=== PATIENT | male | born 1955 | race African-American/Black ===

== ENCOUNTER 2016-11-21 15:57 | Emergency (ER) | payer OTHER ==
[~2016-11-21 15:57] MED LIST: CETI10 PO; FURO8SOL PO; HYDR-2768 PO; MAXZ PO; NAPR-573 PO; POTA-267 PO
[2016-11-21 15:59] VITALS: BP 170/96; PULSE 70; RESP 18; TEMP 97.7; O2SAT 98
[2016-11-21] MEDS ORDERED: SODIUM CHLORIDE 0.9% FLUSH 5 ML FLUSH IVF PRN (18:15)
--- NOTE | 2016-11-21 18:18 | PD ---
HPI Chief Complaint: Respiratory Distress Time Seen by Provider: 18:07 Travel History International Travel<30 days: No Contact w/Intl Traveler<30days: No Traveled to known affect area: No History of Present Illness HPI 61-year-old male came to the emergency room with history of cough and shortness of breath. Patient is a heavy smoker for many years. He also drinks alcohol on a regular basis and last drink was last night. Patient says that this cough has been going on for couple months. Initially he was bringing out yellowish color sputum but now it has turned to whitish. Has been using his inhalers and nebulizer but he ran out of medications. He's been having some chest pain as well. No history of fever or chills. His vital signs were stable. [facility] Past Medical History Narrative Medical List of his past medical history is reviewed from the nursing note. Arthritis: Yes Asthma: Yes COPD: Yes Cerebrovascular Accident: Yes (TIA) Diminished Hearing: No Seizures: Yes Social History Alcohol Use: Yes (1/2 PINT DAY) Tobacco Use: Yes (1 PPD) Substance Use: No Allergies-Medications (Allergen,Severity, Reaction): Coded Allergies: No Known Allergies (Verified , 11/21/16) Comments No known drug allergies. Reported Meds & Prescriptions Reported Meds & Active Scripts Active Levaquin (Levofloxacin) 500 Mg Tab 500 Mg PO DAILY 7 Days Prednisone 50 Mg Tab 50 Mg PO DAILY 5 Days Ventolin Hfa 18 GM Inh (Albuterol Sulfate) 90 Mcg/Act Aer 2 Puff INH Q4-6H PRN Reported Hydrochlorothiazide 25 Mg Tab 25 Mg PO DAILY Lisinopril 10 Mg Tab 10 Mg PO DAILY Narrative Medication List of his home medications reviewed from the nursing note. Review of Systems Except as stated in HPI: all other systems reviewed are Neg Physical Exam Narrative GENERAL: Awake, alert, no obvious distress SKIN: Warm and dry. HEAD: Atraumatic. Normocephalic. EYES: Pupils equal and round. No scleral icterus. No injection or drainage. ENT: No nasal bleeding or discharge. Mucous membranes pink and moist. NECK: Trachea midline. No JVD. CARDIOVASCULAR: Regular rate and rhythm. No murmur appreciated. RESPIRATORY: No accessory muscle use. Clear to auscultation. Breath sounds equal bilaterally. GASTROINTESTINAL: Abdomen soft, non-tender, nondistended. Hepatic and splenic margins not palpable. MUSCULOSKELETAL: No obvious deformities. No clubbing. No cyanosis. No edema. NEUROLOGICAL: Awake and alert. No obvious cranial nerve deficits. Motor grossly within normal limits. Normal speech. PSYCHIATRIC: Appropriate mood and affect; insight and judgment normal. Data Data Last Documented VS Vital Signs Date Time Temp Pulse Resp B/P Pulse Ox O2 Delivery O2 Flow Rate FiO2 11/21/16 19:15 79 20 158/79 95 Room Air 11/21/16 15:59 97.7 Orders Complete Blood Count With Diff (11/21/16 18:15) Basic Metabolic Panel (Bmp) (11/21/16 18:15) B-Type Natriuretic Peptide (11/21/16 18:15) Magnesium (Mg) (11/21/16 18:15) Ckmb (Isoenzyme) Profile (11/21/16 18:15) Troponin I (11/21/16 18:15) Iv Access Insert/Monitor (11/21/16 18:15) Ecg Monitoring (11/21/16 18:15) Oximetry (11/21/16 18:15) Oxygen Administration (11/21/16 18:15) Chest, Single Ap (11/21/16 18:15) Sodium Chloride 0.9% Flush (Ns Flush) (11/21/16 18:15) Albuterol Neb (Albuterol Neb) (11/21/16 18:15) Methylprednisolone So Succ Inj (Solumedr (11/21/16 18:45) CKMB (11/21/16 19:45) CKMB% (11/21/16 19:45) Levofloxacin (Levaquin) (11/21/16 20:45) Potassium Cl 40 Meq/30 Ml Liq (Kcl 40 Me (11/21/16 20:45) Electrocardiogram (11/21/16 18:08) Labs Laboratory Tests Test 11/21/16 11/21/16 18:40 19:45 White Blood Count 5.6 TH/MM3 Red Blood Count 4.97 MIL/MM3 Hemoglobin 13.8 GM/DL Hematocrit 40.4 % Mean Corpuscular Volume 81.1 FL Mean Corpuscular Hemoglobin 27.8 PG Mean Corpuscular Hemoglobin 34.3 % Concent Red Cell Distribution Width 15.3 % Platelet Count 218 TH/MM3 Mean Platelet Volume 7.6 FL Neutrophils (%) (Auto) 48.0 % Lymphocytes (%) (Auto) 41.1 % Monocytes (%) (Auto) 7.4 % Eosinophils (%) (Auto) 2.3 % Basophils (%) (Auto) 1.2 % Neutrophils # (Auto) 2.7 TH/MM3 Lymphocytes # (Auto) 2.3 TH/MM3 Monocytes # (Auto) 0.4 TH/MM3 Eosinophils # (Auto) 0.1 TH/MM3 Basophils # (Auto) 0.1 TH/MM3 CBC Comment DIFF FINAL Differential Comment B-Type Natriuretic Peptide 12 PG/ML Sodium Level 140 MEQ/L Potassium Level 3.0 MEQ/L Chloride Level 105 MEQ/L Carbon Dioxide Level 27.7 MEQ/L Anion Gap 7 MEQ/L Blood Urea Nitrogen 17 MG/DL Creatinine 1.01 MG/DL Estimat Glomerular Filtration 90 ML/MIN Rate Random Glucose 86 MG/DL Calcium Level 8.4 MG/DL Magnesium Level 2.0 MG/DL Total Creatine Kinase 130 U/L Creatine Kinase MB 1.6 NG/ML Troponin I LESS THAN 0.02 NG/ML MDM Medical Decision Making Medical Screen Exam Complete: Yes Emergency Medical Condition: Yes Medical Record Reviewed: Yes Interpretation(s) Twelve-lead EKG was reviewed by me. Normal sinus rhythm, left axis deviation, LVH by voltage criteria, nonspecific ST-T wave changes.. Heart rate of 74 bpm. Differential Diagnosis COPD exacerbation, CHF, bronchitis, pneumonia Narrative Course 6:37 PM patient is getting 2 albuterol nebulizers. I'll give him a dose of steroid. Awaiting for the blood test results. 7 PM awaiting for the blood test results. Case was signed over to the oncoming ER physician. Scripts Levofloxacin (Levaquin)500 Mg [id number] Mg PO DAILY 7 Days Ref 0 Prov:Devyn Montoya MD 11/21/16 Prednisone 50 Mg Tab50 Mg PO DAILY 5 Days Ref 0 Prov:Devyn Montoya MD 11/21/16 Albuterol 18 GM Inh (Ventolin Hfa 18 GM Inh)90 Mcg/Act Aer2 Puff INH Q4-6H PRN ( SHORTNESS OF BREATH) #1 INHALER Ref 0 Prov:Devyn Montoya MD 11/21/16 Jg Red MD Nov 21, 2016 18:18
[2016-11-21] MEDS: RESP: ALBUTEROL 2.5 MG/3 ML NEB (SCH) INH (18:21)
--- NOTE | 2016-11-21 18:32 | RADRPT ---
EXAM DATE/TIME: 11/21/2016 18:14 [place] COMPARISON: No previous studies available for comparison. INDICATIONS : Short of breath MEDICAL HISTORY : Asthma SURGICAL HISTORY : None. ENCOUNTER: Initial ACUITY: 4 - 6 days PAIN SCORE: 0/10 LOCATION: Bilateral chest FINDINGS: A single view of the chest demonstrates the lungs to be symmetrically aerated without evidence of mas s, infiltrate or effusion. The cardiomediastinal contours are unremarkable. Osseous structures are intact. CONCLUSION: No evidence of acute cardiopulmonary disease. Rick Echevarria MD on November 21, 2016 at 18:31 Board Certified Radiologist. This report was verified electronically.
[2016-11-21] MEDS ORDERED: LISI10TA3 PO (18:37)
[2016-11-21] MEDS ORDERED: HYDR25TA5 PO (18:37)
[2016-11-21] MEDS ORDERED: methylPREDNISolone SOD SUCC 125 MG/2 ML VIAL IV PUSH ONE (18:45)
[2016-11-21 19:07] LABS: AUTOMATED NEUTROPHIL # 2.7 TH/MM3 (1.8-7.7); BASOPHIL # 0.1 TH/MM3 (0-0.2); BASOPHIL % 1.2 % (0.0-2.0); EOSINOPHIL # 0.1 TH/MM3 (0-0.4); EOSINOPHIL % 2.3 % (0.0-4.0); HEMATOCRIT 40.4 % (39.0-51.0); HEMO FLAGS DIFF FINAL; LYMPH % 41.1 % (9.0-44.0); LYMPHOCYTE # 2.3 TH/MM3 (1.0-4.8); MEAN CELL VOLUME 81.1 FL (80.0-100.0); MEAN CORPUSCULAR HEMOGLOBIN 27.8 PG (27.0-34.0); MEAN CORPUSCULAR HGB CONC 34.3 % (32.0-36.0); MONO % 7.4 % (0.0-8.0); PLATELET COUNT 218 TH/MM3 (150-450); RED BLOOD COUNT 4.97 MIL/MM3 (4.50-5.90); RED CELL DISTRIBUTION WIDTH 15.3 % (11.6-17.2); WHITE BLOOD COUNT 5.6 TH/MM3 (4.0-11.0)
[2016-11-21 19:15] VITALS: BP 158/79; PULSE 79; RESP 20; O2SAT 95
[2016-11-21 20:31] LABS: ANION GAP 7 MEQ/L (5-15); BICARBONATE 27.7 MEQ/L (21.0-32.0); BLOOD UREA NITROGEN 17 MG/DL (7-18); CHLORIDE 105 MEQ/L (98-107); GLOMERULAR FILTRATION RATE 90 ML/MIN (>89); SODIUM (NA) 140 MEQ/L (136-145)
[2016-11-21 20:35] LABS: CREATINE KINASE 130 U/L (39-308)
[2016-11-21] MEDS ORDERED: VENTAER INH (20:44)
[2016-11-21] MEDS ORDERED: PRED50 PO (20:44)
[2016-11-21] MEDS ORDERED: LEVA500T PO (20:44)
[2016-11-21] MEDS ORDERED: LEVOFLOXACIN 500 MG TAB PO ONE (20:45)
[2016-11-21] MEDS ORDERED: POTASSIUM CL 40 MEQ/30 ML LIQ UDC PO ONE (20:45)
--- NOTE | 2016-11-21 20:45 | PD ---
Data Data Last Documented VS Vital Signs Date Time Temp Pulse Resp B/P Pulse Ox O2 Delivery O2 Flow Rate FiO2 11/21/16 19:15 79 20 158/79 95 Room Air 11/21/16 15:59 97.7 Orders Complete Blood Count With Diff (11/21/16 18:15) Basic Metabolic Panel (Bmp) (11/21/16 18:15) B-Type Natriuretic Peptide (11/21/16 18:15) Magnesium (Mg) (11/21/16 18:15) Ckmb (Isoenzyme) Profile (11/21/16 18:15) Troponin I (11/21/16 18:15) Iv Access Insert/Monitor (11/21/16 18:15) Ecg Monitoring (11/21/16 18:15) Oximetry (11/21/16 18:15) Oxygen Administration (11/21/16 18:15) Chest, Single Ap (11/21/16 18:15) Sodium Chloride 0.9% Flush (Ns Flush) (11/21/16 18:15) Albuterol Neb (Albuterol Neb) (11/21/16 18:15) Methylprednisolone So Succ Inj (Solumedr (11/21/16 18:45) CKMB (11/21/16 19:45) CKMB% (11/21/16 19:45) Levofloxacin (Levaquin) (11/21/16 20:45) Potassium Cl 40 Meq/30 Ml Liq (Kcl 40 Me (11/21/16 20:45) Labs Laboratory Tests Test 11/21/16 11/21/16 18:40 19:45 White Blood Count 5.6 TH/MM3 Red Blood Count 4.97 MIL/MM3 Hemoglobin 13.8 GM/DL Hematocrit 40.4 % Mean Corpuscular Volume 81.1 FL Mean Corpuscular Hemoglobin 27.8 PG Mean Corpuscular Hemoglobin 34.3 % Concent Red Cell Distribution Width 15.3 % Platelet Count 218 TH/MM3 Mean Platelet Volume 7.6 FL Neutrophils (%) (Auto) 48.0 % Lymphocytes (%) (Auto) 41.1 % Monocytes (%) (Auto) 7.4 % Eosinophils (%) (Auto) 2.3 % Basophils (%) (Auto) 1.2 % Neutrophils # (Auto) 2.7 TH/MM3 Lymphocytes # (Auto) 2.3 TH/MM3 Monocytes # (Auto) 0.4 TH/MM3 Eosinophils # (Auto) 0.1 TH/MM3 Basophils # (Auto) 0.1 TH/MM3 CBC Comment DIFF FINAL Differential Comment B-Type Natriuretic Peptide 12 PG/ML Sodium Level 140 MEQ/L Potassium Level 3.0 MEQ/L Chloride Level 105 MEQ/L Carbon Dioxide Level 27.7 MEQ/L Anion Gap 7 MEQ/L Blood Urea Nitrogen 17 MG/DL Creatinine 1.01 MG/DL Estimat Glomerular Filtration 90 ML/MIN Rate Random Glucose 86 MG/DL Calcium Level 8.4 MG/DL Magnesium Level 2.0 MG/DL Total Creatine Kinase 130 U/L Troponin I LESS THAN 0.02 NG/ML MDM Supervised Visit with QI: No Differential Diagnosis The patient was initially evaluated by the previous provider and signed out to me at the beginning of my shift pending labs, reevaluation, and disposition. See her note for further details. Briefly this is a 61-year-old male who smokes about 2 packs of cigarettes daily who is here for evaluation of shortness of breath 2 months. Patient was wheezing on initial exam. He is also having cough productive of greenish sputum. No fevers or chills. No chest pain. CBC is unremarkable. BMP is remarkable for potassium 3.0 which was replaced orally. Cardiac enzymes are negative. Chest x-ray shows no acute disease. The patient was given 2 DuoNeb treatments and IV Solu-Medrol by the previous provider, and states that he is feeling much better. He would like to be discharged home. On my assessment he is resting comfortably. No respiratory distress. No wheezes. I will discharge him home with a refill for his albuterol, prednisone, as well as Levaquin. PMD follow-up this week. He was informed on when to return to the emergency department. He verbalizes understanding and agreement with plan. Diagnosis Primary Impression: Bronchitis Additional Impression: Hypokalemia Referrals: Primary Care Physician 3 days Additional Instruction: Follow-up with your primary care physician this week. Return to the emergency department for worsening symptoms or any other concerns. Scripts Levofloxacin (Levaquin)500 Mg [id number] Mg PO DAILY 7 Days Ref 0 Prov:Devyn Montoya MD 11/21/16 Prednisone 50 Mg Tab50 Mg PO DAILY 5 Days Ref 0 Prov:Devyn Montoya MD 11/21/16 Albuterol 18 GM Inh (Ventolin Hfa 18 GM Inh)90 Mcg/Act Aer2 Puff INH Q4-6H PRN ( SHORTNESS OF BREATH) #1 INHALER Ref 0 Prov:Devyn Montoya MD 11/21/16 Disposition: 01 DISCHARGE HOME Condition: Stable Devyn Montoya MD Nov 21, 2016 20:45
[2016-11-21 20:48] LABS: CKMB 1.6 NG/ML (0.5-3.6)
--- NOTE | 2016-11-22 22:50 | EKG ---
Date Performed: 11/21/2016 Time Performed: 18:08:18 PTAGE: 61 years EKG: Sinus rhythm MINIMAL VOLTAGE CRITERIA FOR LVH, CONSIDER NORMAL VARIANT BORDERLINE ECG INTERPRETATION BASED ON A D EFAULT AGE OF 40 YEARS PREVIOUS TRACING : 08/24/2011 16.13 DOCTOR: Farooq Daugherty Interpretating Date/Time 11/22/2016 22:45:53
== END 2016-11-21 21:09 | disposition home or self-care (01) ==
LOC: NEPE 15:57
DX: J40 Bronchitis, not specified as acute or chronic (principal); E87.6 Hypokalemia; J45.909 Unspecified asthma, uncomplicated; J44.9 Chronic obstructive pulmonary disease, unspecified; Z86.73 Personal history of transient ischemic attack (TIA), and cerebral infarction without residual deficits; F17.200 Nicotine dependence, unspecified, uncomplicated
CPT/HCPCS: 71010; 80048; 82550; 82552; 83735; 83880; 84484; 85025; 93005; 94640; 94664; 96374; 99284; J2930; J7613